=== PATIENT | female | born 1970 | race Caucasian/White ===

== ENCOUNTER → 2021-04-04 | Outpatient (CLI) | payer OTHER ==
--- NOTE | 2021-04-04 14:58 | REP ---
INDICATION: LEFT BREAST MASS, LEFT OUTER BREAST 3:00 3CFN. PATIENT COMPLAINS OF A PALPABLE LEFT BREAST NODULE IN THE UPPER OUTER AREA WHICH SHE HAS HAD SINCE AT LEAST 2012. COMPARISON: MULTIPLE WITH NO PRIOR DBT TECHNIQUE: Bilateral digital mammography was obtained in the CC and MLO projections using both 2D and 3D modalities along with diagnostic digital magnified spot compression views of the left breast over the region of interest indicated by the technologist placing a triangular-shaped marker on the skin. This is the same area that was identified and a mammogram of 11/18/2012 FINDINGS: The breasts are unchanged in size and shape. Once again, dense heterogenous nodular fibroglandular elements are seen bilaterally to such a degree that the sensitivity of the mammogram in detecting cancers decreased. There are no cee soft tissue densities or spiculated masses. There is no internal architectural distortion. There are no suspicious calcifications. There is no skin thickening or nipple retraction. Diagnostic digital magnified spot-compression views show a completely unchanged round subcutaneous nodular density in the upper outer quadrant of the left breast. This has been stable since 2012. The Volpara volumetric breast density pattern is C IMPRESSION: BIRADS/ACR category 2 benign findings.. There is no evidence of malignant alteration of either breast. There is a stable left breast nodule as described above. Secondary to the patient's breast density score of C bilateral breast MRI is warranted at this time. This patient's Tyrer-Cuzick lifetime breast cancer risk assessment score is 8.6%. This mammogram was interpreted with the aid of an FDA-approved computer-aided detection system. The patient states she had a clinical breast exam in March 2021. The patient letter being requested is M1. RECOMMENDATION: As above <Electronically signed by Dev Howard > 04/04/21 1227
== END ==
LOC: M WHC 14:00
PROVIDERS: ATTEND Nurse Practitioner Women's Health
DX: N63.20 Unspecified lump in the left breast, unspecified quadrant (principal)
CPT/HCPCS: 77066; G0279

== ENCOUNTER → 2021-04-04 | Outpatient (REF) | payer OTHER | LOC: M SFHCWAGY 19:13 | PROVIDERS: ATTEND Nurse Practitioner Women's Health | DX: Z12.4 Encounter for screening for malignant neoplasm of cervix (principal) ==

== ENCOUNTER → 2021-08-17 | Outpatient (CLI) | payer OTHER ==
--- NOTE | 2021-08-18 05:00 | REP ---
INDICATION: ABNORMAL UTERINE BLEEDING COMPARISON: None. TECHNIQUE: Transabdominal pelvic ultrasound followed by transvaginal examination for better evaluation of the endometrium and adnexa with color Doppler evaluation of the ovaries. FINDINGS: Bladder is unremarkable and measures 9.5 x 6.1 x 9.6 cm. Normal anteverted uterus measures 8.9 x 5.3 x 4.0 cm. The endometrial complex measures 7 mm thickness. No discrete uterine or endometrial abnormalities are appreciated. Bilateral ovaries are normal in appearance and vascularity without evidence for torsion. Right ovary measures 2.9 x 2.3 x 1.9 cm; R I = 0.80. Left ovary measures 3.5 x 1.7 x 2.1 cm; R I = 0.70. No pelvic fluid or adnexal mass lesion. IMPRESSION: Normal pelvic ultrasound. <Electronically signed by Gregg Thompson > 08/18/21 0452
== END ==
LOC: M WHC 12:00
PROVIDERS: ATTEND Nurse Practitioner Women's Health
DX: N93.9 Abnormal uterine and vaginal bleeding, unspecified (principal)